=== PATIENT | male | born 1985 | race Caucasian/White ===

== ENCOUNTER 2017-09-02 10:10 | Emergency (ER) | payer BC ==
--- NOTE | 2017-09-02 10:33 | ED Physician Documentation ---
General Adult - HISTORIAN Historian: patient - HPI Stated Complaint: chest pain Chief Complaint: General Adult Onset: days ago Timing: still present Severity: moderate Further Comments: yes (Pt is a 32 yo male with pain in his upper L chest with radiation to his L arm. Pain is worse with movement. Pt notes that both his mother and his brother were dx'd with cancer, his brother at age 26 with lesions in his chest. Pt has not had sob, n/v, diaphoresis.) - ROS CONST: no problems EYES/ENT: none CVS/RESP: chest pain MS/SKIN/LYMPH: none - PAST HX Past History: none Allergies/Adverse Reactions: Allergies Allergy/AdvReac Type Severity Reaction Status Date / Time No Known Allergies Allergy Unverified 09/02/17 10:33 Home Medications: Ambulatory Orders Medication Instructions Recorded NK [NK] 09/02/17 - SOCIAL HX Smoking History: non-smoker - FAMILY HX Family History: Yes (Brother, 26, with stage 4 Hodkins Lymphoma; Mother also with cancer.) - REVIEWED ASSESSMENTS Nursing Assessment Reviewed: Yes Vitals Reviewed: Yes Progress - Progress Progress: Toradol 60 mg IM in ER. Rx Flexeril 10 mg. Take one every 8 hrs as needed. (Muscle relaxant) Ibuprofen 200 mg. Take 2 or 3 every 8 hrs. - EKG/XRAY/CT EKG: NSR (HR=69; normal EKG.) General Adult Physical Exam - PHYSICAL EXAM GENERAL APPEARANCE: mild distress (anxiety) EENT: pharynx normal NECK: normal inspection, supple RESPIRATORY: no resp distress, chest non-tender, breath sounds normal CVS: reg rate & rhythm, heart sounds normal ABDOMEN: soft, no organomegaly, normal bowel sounds BACK: normal inspection, no CVA tenderness SKIN: warm/dry, normal color EXTREMITIES: non-tender, normal range of motion, no evidence of injury, no edema NEURO: oriented X3, motor nml, sensation nml Discharge Clincal Impression: Non-cardiac chest pain, musculoskeletal pain, radiculopathy Condition: Good Disposition: 01 HOME, SELF-CARE Decision to Admit: NO Decision Time: 11:34
[2017-09-02 10:47] LABS: BASOPHILS % 0.7 (0.0-1.5); EOSINOPHILS % 1.5 % (0.0-6.8); MEAN CORPUSCULAR HEMOGLOBIN 32.4 pg (28.0-34.0); MEAN CORPUSCULAR VOLUME 94.8 fl (80.0-100.0); MONOCYTES % 7.1 % (0.0-11.0); NEUTROPHILS # 2.9 # k/uL (1.4-7.7)
[2017-09-02 11:02] LABS: eGFR (African) > 60; eGFR (Non-African) > 60
[2017-09-02] MEDS ORDERED: KETOROLAC TROMETHAMINE 60 MG/2 ML VIAL IM ONE (11:05)
[2017-09-02 12:11] VITALS: BP 125/80
--- NOTE | 2017-09-02 18:22 | Diagnostic Imaging Report ---
HIPOLITO YOUGN [facility] [id number] [facility] [address] [place] [address]. [id number] Report Submission Date: Sep 02, 2017 11:30:00 AM CDT Patient Study Name: SUJATHA SHEARER Date: Sep 02, 2017 11:14:45 AM CDT Modality Type: DX Gender: M Description: CHEST : 85 Institution: [facility] Physician: HIPOLITO YOUNG Examination: PA and lateral chest. History: Evaluate lung dubon. CXR, CHEST PAIN FOR A FEW DAYS, WORSENING TODAY WITH PAIN DOWN LEFT ARM (Hx) Comparison exam: None provided. Findings: PA lateral chest demonstrate a normal cardiac and mediastinal silhouette. No focal infiltrate. No blunting of the costophrenic margins. Osseous structures are appropriate for age. Impression: No acute pulmonary process. Electronically signed on Sep 02, 2017 11:30:00 AM CDT by: Jimmy LEBLANC
== END 2017-09-02 11:43 | disposition home or self-care (01) ==
LOC: ED 10:10
DX: R07.89 Other chest pain (principal); M79.1 Myalgia; M54.10 Radiculopathy, site unspecified
CPT/HCPCS: 36415; 71046; 80053; 82550; 84484; 85025; 85379; 93005; J1885; 96372; S1016